=== PATIENT | male | born 1950 | race Caucasian/White ===

== ENCOUNTER → 2017-09-12 11:15 | Outpatient (CLI) | payer OTHER, SELFPAY ==
--- NOTE | 2017-09-12 11:22 | US_ITS ---
STUDY: SCROTUM ULTRASOUND REASON FOR EXAM: Male, 67 years old. Lump TECHNIQUE: Ultrasound evaluation of the scrotum was performed with color Doppler and static pathak-scale imaging. COMPARISON: None. FINDINGS: RIGHT TESTICLE INTRATESTICULAR: There is a normal size of the right testicle. The right testicle measures 3.7 x 3.1 x 2.7 cm. There is a homogenous echotexture. There is normal arterial and normal venous vascularity. There is no demonstrated right testicular mass or cyst. EXTRATESTICULAR: The epididymis is normal in size. The epididymis head measures 1.1 cm. There is normal vascularity of the epididymis. There is no demonstrated epididymal cystic structure. There is a small hydrocele. There is no demonstrated varicocele. There is no demonstrated extratesticular mass or cyst. LEFT TESTICLE INTRATESTICULAR: There is a normal size of the left testicle. The left testicle measures 4.1 x 3.2 x 2.3 cm. There is a homogenous echotexture. There is normal arterial and normal venous vascularity. There is no demonstrated left testicular mass or cyst. EXTRATESTICULAR: The epididymis is normal in size. The epididymis head measures 6.7 cm. There is normal vascularity of the epididymis. There is no demonstrated epididymal cystic structure. There is a small hydrocele. There are prominent extratesticular veins consistent with a varicocele. There is no demonstrated extratesticular mass or cyst. US/Testicular with Arterial Flow IMPRESSION: No testicular mass or torsion. Bilateral small hydroceles. Small left varicocele. Electronically Signed: Ephraim Pierce DO at 10:57 EDT , Service support ,
== END ==
DX: N50.0 Atrophy of testis (principal)
CPT/HCPCS: 76870; 93976

== ENCOUNTER 2019-05-20 08:55 | Observation (INO) | payer MEDICARE, OTHER, SELFPAY ==
[2019-05-20] VITALS (12 sets, daily range): BP systolic 143–195; BP diastolic 77–107; PULSE 71–92; RESP 13–17; TEMP 36.5–36.8; O2SAT 95–98; BMI 31.3; BMI 30.3; BMI 30.4
--- NOTE | 2019-05-20 09:01 | NURSING ---
NO OLD EKGS
--- NOTE | 2019-05-20 09:17 | CT_ITS ---
STUDY: CT BRAIN WITHOUT CONTRAST REASON FOR EXAM: Male, 69 years old. PATIENT REPORTS WAKING THIS AM AND FEELING HIS BALANCE IS OFF. ADDS THAT HE HAS HAD DIFFICULTY CONCENTRATING AND CONFUSION. BLOOD SUGAR AT WORK WAS 86. RADIATION DOSAGE (If Supplied By Facility): CTDIvol = ( 44.99 ) mGy, DLP = ( 812.98 ) mGycm TECHNIQUE: Transaxial CT imaging of the brain was performed without administration of intravenous contrast material. Individualized dose optimization techniques were used for this CT. COMPARISON: Comparison is made with prior study dated May 19, 2014. FINDINGS: Normal soft tissue structures. Normal calvarium. There is mild cerebral atrophy with widening of the extra-axial spaces and ventricular dilatation. There are areas of decreased attenuation within the white matter tracts of the supratentorial brain, consistent with microvascular disease changes. Normal basal ganglia and thalami. Normal brainstem. Normal cerebellum. There is no intracranial hemorrhage. There are no findings of an acute ischemic infarction. Mucosal thickening of the ethmoid sinuses and partial opacification of the base of the right maxillary sinus and mucosal thickening of the left maxillary sinus. CT/Brain/Head without Contrast IMPRESSION: Sinusitis. Electronically Signed: Brian Porter, at 9:59 EST , Service support ,
--- NOTE | 2019-05-20 09:17 | EKG12_ITS ---
Test Reason : DIZZY Blood Pressure : / mmHG Vent. Rate : 072 BPM Atrial Rate : 072 BPM P-R Int : 152 ms QRS Dur : 100 ms QT Int : 392 ms P-R-T Axes : 037 -12 005 degrees QTc Int : 429 ms Normal sinus rhythm Minimal voltage criteria for LVH, may be normal variant Borderline ECG Confirmed by AURORA ROSAS, JUMANA ([id number]), website/blog editor JUANITO MATTA ([id number]) on 05/21/2019 8:02:39 AM Referred By: IFEANYI Confirmed By:ZO SIMON MD
--- NOTE | 2019-05-20 09:20 | ED.VIS.GEN ---
History of Present Illness Chief Complaint: Neuro S/Sx Informant: Patient Onset: Today Narrative: Patient states that he went to bed last night at 2030 hours. He states that he woke up as usual at 0230 hours. He felt okay getting out of bed but when he attempted to walk around the bed he felt very unsure of his footing and off-balance. States there is no room spinning he just felt very off. He describes it as much like being on a ship and being unsure of where to adjust your weight due to the rocking of the boat. He notes an occipital headache. States his thinking is very slow and confused. He states his normal 15-minute drive to work took him 20 to 25 minutes. States that he was stopped at a stop sign and was very unsure if he had locked whether or not he should go. As part of his job he has to check the weather and record it so he went outside looked up at the [place] and states that he almost fell over. He notes a history of hypertension. He also has a history of ocular migraines but has not had one for several years. He has a history of approximately 3 concussions but states that it is been several years since he has had one. He denies any recent trauma. He sees the [facility] in [place]. Past Medical History - Allergies and Home Meds Allergies/Adverse Reactions: Allergies adhesive Allergy (Verified 05/20/19 10:01) Rash [place] And Derivatives Allergy (Verified 05/20/19 10:01) Food Allergy Primary Care Physician: [place] [Primary Care Provider] - Smoking Status: Never smoker Review of Systems General: Denies: Chills, Fever, Sweats Eyes: Denies: Visual changes - bilaterally, Diplopia ENT: Denies: Rhinorrhea, Sore throat Cardiovascular: Denies: Chest pain, Palpitations Respiratory: Denies: Dyspnea, Cough, Dyspnea on exertion Gastrointestinal: Denies: Abdominal pain, Nausea, Vomiting, Diarrhea, Melena, Hematochezia Genitourinary: Denies: Dysuria, Hematuria, Frequency Musculoskeletal: Denies: Back pain, Extremity Pain Skin: Denies: Rash, Wounds Neurological: Reports: Headache, - - Ataxia. Denies: Weakness, Numbness Psych: Denies: Depression, Anxiety Physical Exam Vital Signs/Narrative: Vital Signs Temp Pulse Resp BP Pulse Ox 05/20/19 09:13 76 13 195/97 H 98 05/20/19 09:04 98.3 F 76 17 170/94 H 97 Inital Vital Signs reviewed: Yes General: Well nourished, Well developed, No Acute Distress Head: Normocephalic, Atraumatic Eyes: Perrl, EOMI ENT: Moist mucous membranes, No rhinorrhea Neck: Supple, Nontender Cardiovascular: Regular rate, Regular rhythm, No murmurs Respiratory: No distress, CTA bilaterally, Chest nontender Abdomen: Soft, Nontender, Nondistended, Normal bowel sounds Back: Nontender, Normal Inspection Extremities: Nontender, No edema Skin: Normal color, No rash Neurological: Alert, Oriented x3, Cranial nerves II-XII grossly intact, Normal Strength, Normal Sensation, - - NIH score is 0. He performs exceedingly well at [employer]. Psychological: Normal affect, Normal Mood Diagnostic/Tx/Re-eval - Medical Decision Making Basic labs were obtained essentially negative. Initial brain CT was negative. CT [place] of the head and neck showed no obvious dissection. Patient was reassessed and is able to ambulate feeling better. I am concerned of a central cause for his ataxia such as TIA. Patient is amendable to observational stay for further evaluation. ED Disposition - Plan for ED Patient: Disposition: Acute Care Hospital [facility] Diagnosis: Ataxia, TIA (transient ischemic attack) [facility] [Primary Care Provider] -
[2019-05-20 09:21] LABS: Bedside Glucose 89 mg/dL (70-110)
[2019-05-20 09:28] LABS: Absolute Neutrophil Count 3.6 X10^3/uL (2.0-7.7); Basophil# 0.06 X10^3/uL; Eosinophil# 0.14 X10^3/uL; Eosinophils% 2.4 % (0-5); Hematocrit 48.7 % (40-54); Hemoglobin 16.2 g/dL (13.0-16.5); Lymphocyte % 27.4 % (19-41); Mean Corp Hgb Conc 33.3 g/dL (32-36); Mean Corpuscular Hgb 29.5 pg (27.0-32.0); Mean Corpuscular Volume 88.7 fL (80-94); Mean Platelet Vol. 10.2 fl (6.2-12.0); Monocyte# 0.45 X10^3/uL; Monocyte% 7.7 % (0-10); NRBC Flagged by Analyzer 0 % (0-5); Neutrophil # 3.59 X10^3/uL (2.7-7.7); Neutrophil % 61.3 % (47-70); Platelet Count 169 K/mm3 (150-450); RBC Distribution Width CV 12.7 % (11.6-14.6); RBC Distribution Width SD 41.1 fl (35.1-43.9); Red Blood Count 5.49 M/mm3 (4.6-6.2); White Blood Count 5.9 K/mm3 (4.4-11.0)
[2019-05-20 09:39] LABS: Prothrombin Time (Protime)PT. 12.7 SECONDS (11.7-14.9)
[2019-05-20 09:40] LABS: Partial Thromboplast Time 32.2 Seconds (24.1-36.2)
[2019-05-20 09:43] LABS: Anion Gap 3 (5-15); BUN 17 mg/dL (7-18); BUN/Creat Ratio 18.1 RATIO (10-20); Calcium,Total 9.2 mg/dL (8.5-10.1); Chloride 108 mmol/L (98-107); Creatinine, Serum 0.94 mg/dL (0.70-1.30); EST Glomerular Filtration Rate 84 mL/min (>60); Est Glom Filt Rate - Afr Amer 102 mL/min (>60); Estimated Creatinine Clearance 65.04 ml/min; Glucose 87 mg/dL (74-106); Potassium 3.5 mmol/L (3.5-5.1); Sodium Level 141 mmol/L (136-145)
--- NOTE | 2019-05-20 09:48 | RAD_ITS ---
STUDY: X-RAY CHEST REASON FOR EXAM: Male, 69 years old. ATAXIA TECHNIQUE: Single AP portable view of the chest. COMPARISON: None. FINDINGS: EKG electrodes are seen. The lungs are clear and expanded. Scattered calcified granulomas. There is no demonstrated pleural abnormality. Normal size heart. Normal mediastinum and wallace. Normal visualized pulmonary arteries. There is atherosclerotic calcification of the aortic arch with tortuosity. There are diffuse degenerative changes of the visualized thoracic spine. Normal visualized ribs, clavicles, and shoulders. There is no demonstrated abnormality of the visualized soft tissue structures of the upper abdomen. RAD/Chest 1 View IMPRESSION: No acute abnormality is seen. Electronically Signed: Brian Porter, at 10:10 EST , Service support ,
--- NOTE | 2019-05-20 10:41 | NURSING ---
CALLED [facility] TO LET THEM KNOW PATIENT WILL BE ADMITTED. TALKED TO MICKEY IN TRANSFER DEPT, SHE TOOK LAST NAME AND SS# , AND DIAGNOSIS
--- NOTE | 2019-05-20 11:07 | CT_ITS ---
STUDY: CTA HEAD AND NECK WITH CONTRAST REASON FOR EXAM: Male, 69 years old. STROKE/OFF BALANCE/CONFUSION RADIATION DOSAGE (If Supplied By Facility): CTDIvol = ( 19.54 ) mGy, DLP = ( 713.36 ) mGycm TECHNIQUE: CT angiography was performed with a multi-detector CT scanner. Data acquisition was obtained from the skull base through the vertex following intravenous administration of 100 CC ISOVUE 370. MIP images were reconstructed from the axial data set. Post-processing of the angiographic images was performed, with multiplanar reformation and 3D reconstruction. Individualized dose optimization techniques were used for this CT. COMPARISON: No relevant priors. FINDINGS: There is a mild degree of diffuse enlargement of both lobes of thyroid with the hypodensity within suggestive of goitrous change. Normal bilateral petrous carotid arteries. There is calcified plaque formation of the right cavernous carotid artery, without a cross-sectional luminal stenosis. There is calcified plaque formation of the left cavernous carotid artery, without a cross-sectional luminal stenosis. Normal right A1 segments of the anterior cerebral artery. Normal left A1 segments of the anterior cerebral artery. Normal intact anterior communicating artery (ACOM). Normal bilateral A2 segments of the anterior cerebral arteries. Normal right M1 and M2 segments of the middle cerebral arteries, with a normal M1 bifurcation. Normal left M1 and M2 segments of the middle cerebral arteries, with a normal M1 bifurcation. Normal right posterior communicating artery (PCOM). Normal left posterior communicating artery (PCOM). Normal bilateral vertebral arteries. Normal basilar artery with a normal basilar bifurcation. The visualized bilateral superior cerebellar (SCA) arteries are normal. Normal bilateral P1, P2 and visualized P3 segments of the posterior cerebral arteries. There is no demonstrated aneurysm of the [place]. Cerebral atrophy. Sinusitis. AORTIC ARCH: Normal visualized aortic arch. Normal origins of the brachiocephalic, left common carotid, and left subclavian arteries. RIGHT CAROTID ARTERIES: Normal right common carotid artery (CCA). Normal right common carotid bulb. There is minimal atherosclerotic plaque formation of the origin of the right internal carotid artery with less than 50% cross sectional diameter stenosis. Normal visualized cervical portion of the right internal carotid artery. Normal origin of the right external carotid artery (ECA). LEFT CAROTID ARTERIES: Normal left common carotid artery (CCA). Normal left common carotid bulb. There is minimal atherosclerotic plaque formation of the origin of the left internal carotid artery with less than 50% cross sectional diameter stenosis. Normal visualized cervical portion of the left internal carotid artery. Normal origin of the left external carotid artery (ECA). VERTEBRAL ARTERIES: Normal bilateral vertebral arteries. CT/CTA Head AND Neck W/ Contrast IMPRESSION: Minimal calcific plaque at the origin of both right and left internal carotid arteries. Electronically Signed: Brian Porter, at 12:03 EST , Service support ,
--- NOTE | 2019-05-20 11:17 | ED.RN ---
PT OUT OF ED IN WHEELCHAIR FOR TRANSPORT BACK TO [facility].
--- NOTE | 2019-05-20 13:22 | ECHOD_ITS ---
Reason For Study: TIA/CVA Procedure This was a 2D Doppler, Color Flow transthoracic echocardiogram. Exam performed portable in patient room. Left Ventricle Normal LV size. The estimated ejection fraction is 65 %. Normal diastology for age. No regional wall motion abnormalities noted. Right Ventricle Normal RV size. Normal systolic function. Atria Normal left atrium. Normal right atrium. Bubble contrast study negative for right to left interatrial shunt. There were bubbles that reached the left side of the heart but it was 6 beats after reaching the right side. Mitral Valve There is no mitral valve stenosis. No mitral valve insufficiency. Tricuspid Valve There is no tricuspid stenosis. Trivial tricuspid valve insufficiency. Pulmonary artery systolic pressure is 30-35 mmHg. Aortic Valve Trisinus/trileaflet aortic valve. There is no aortic stenosis. No aortic valve insufficiency. Pulmonic Valve There is no pulmonic valvular stenosis. No pulmonic valve insufficiency. Great Vessels Normal aortic root. Pericardium/Pleural No pericardial effusion. Medication Performed a rapid injection of agitated mix of 9 cc saline and 1cc air to assess for atrial septal defect. MMode/2D Measurements & Calculations LVIDd: 4.7 cm IVSd: 1.1 cm Ao root diam: 3.8 cm LVIDs: 3.3 cm LVPWd: 1.1 cm RVDd: 3.7 cm FS: 28.6 % LAV(MOD-bp): 42.3 ml LVAd ap4: 34.0 cm2 SV(MOD-sp4): 70.2 ml LAV(MOD-bp) Indexed: 21.4 ml/m2 EDV(MOD-sp4): 109.6 ml LAV(MOD-sp2): 60.3 ml EDV(sp4-el): 115.7 ml LAV(MOD-sp4): 28.0 ml LVAs ap4: 16.8 cm2 ESV(MOD-sp4): 39.4 ml ESV(sp4-el): 37.3 ml EF(MOD-sp4): 64.1 % EF(sp4-el): 67.8 % SV(sp4-el): 78.5 ml LA A4 area: 13.1 cm2 LA dimension(2D): 3.5 cm RA A4 area: 13.4 cm2 Time Measurements MV dec time: 0.25 sec Doppler Measurements & Calculations MV E max ashish: 61.6 cm/sec Lat Peak E' Ashish: 7.5 cm/sec Med Peak E' Ashish: 6.6 cm/sec MV A max ashish: 89.2 cm/sec E/E' lat: 8.2 E/E' med: 9.4 MV E/A: 0.69 Ao V2 max: 133.6 cm/sec LV V1 max: 90.9 cm/sec PA V2 max: 111.1 cm/sec Ao max P.1 mmHg LV V1 max P.3 mmHg TR max ashish: 252.9 cm/sec TR max P.7 mmHg Interpretation Summary The estimated ejection fraction is 65 %. Normal diastology for age. Bubble contrast study negative for right to left interatrial shunt. Trivial tricuspid valve insufficiency. Ordering Physician: Andrews Hernadez Referring Physician: [facility] Performed By: Ana Levy, RDCS, RVT
--- NOTE | 2019-05-20 13:22 | MRI_ITS ---
STUDY: MRI BRAIN WITHOUT CONTRAST REASON FOR EXAM: Male, 69 years old. vertigo, unsteady gait, h/o ocular migraines, TECHNIQUE: Standardized multiplanar fat and water weighted pulse sequences were obtained. COMPARISON: None. FINDINGS: There is mild cerebral atrophy with widening of the extra-axial spaces and ventricular dilatation. There are a limited number of small white matter hyperintensities, distributed throughout the deep white matter tracts of the cerebral hemispheres, consistent with mild chronic white matter ischemic changes. There is no evidence for recent intracranial ischemia or other cause of cytotoxic edema on diffusion weighted imaging (DWI). Normal T2* images of the brain without demonstrated susceptibility artifact. There is no demonstrated hemosiderin stain. There is small area of the right frontal subcortical microvascular ischemic change. Normal bilateral basal ganglia. Normal thalami. There is no extra-axial fluid accumulation. Normal flow voids within the major intracranial circulation suggesting patency by spin echo criteria. Normal sella turcica, pituitary gland, infundibular stalk, optic chiasm and hypothalamus. Normal tectal plate and pineal gland. Normal midbrain, aurelio and medulla. Normal cerebellum. Normal basal cisterns. Normal bilateral temporal bones. Normal bilateral internal auditory canals. No demonstrated orbital abnormality, within the constraints of a routine brain study. Normal visualized paranasal sinuses. Bilateral mastoid effusions are present, correlate for congestive versus inflammatory process. Normal visualized soft tissue structures. Normal visualized upper cervical spine. MRI/Brain without Contrast IMPRESSION: 1. No evidence of acute intracranial bleed, mass or ischemia. Electronically Signed: Art Nichols DO at 20:16 EST , Service support ,
--- NOTE | 2019-05-20 14:06 | HP.PCM_ITS ---
History of Present Illness Date of Admission: 05/20/19 Chief Complaint: dizziness The patient is a 69 year old M presents with dizziness. Patient got up this morning and was some do some things around the house and then just felt dizzy. States that he did not feel that the room was spinning but just felt off balance and was leaning towards the wall. Went to work today and just was processing things slower, such as when he was at a stop sign, was very hesitant in regards to moving forward. Stated that his normal route, as he works as a transportation attendant, took a 20 minutes instead of its typical 15. Spoke with his and was speaking slowly but not slurring his words. There was concern patient was sent to the emergency room. Symptoms essentially did resolve the patient did undergo a work-up in the emergency room that was unremarkable. The hospital service was asked to evaluate the patient for evaluation for possible stroke. He denies ever having had symptoms such as this before. [] Past Medical History Medical History: Medical History (Last Updated 05/20/19 @ 14:[address] Andrews Hernadez, ) HTN (hypertension) I10 Allergies adhesive Allergy (Verified 05/20/19 10:01) Rash Bee And Derivatives Allergy (Verified 05/20/19 10:01) Food Allergy Home Medications: Ambulatory Orders Medication Instructions Recorded Aspirin [Aspirin, Baby] 81 mg PO DAILY@0800 03/19/14 Amlodipine [Norvasc] 2.5 mg PO DAILY 05/20/19 Cholecalciferol (VIT D3) [Vitamin 1,000 mg PO DAILY 05/20/19 D3] Metoprolol Tartrate 25 mg PO BID 05/20/19 Multivitamin [Daily Multiple 1 ea PO DAILY 05/20/19 Vitamin] Naproxen Sodium 220 mg PO BID 05/20/19 Psychiatric History: No pertinent psych hx Lives: Spouse/ Significant Other Smoking Status: Former smoker Tobacco Use: Non-smoker Alcohol: Rare Drugs: None - *Family History Maternal History Items: - - no CVA Review of Systems Constitutional: Denies: Anorexia, Chills, Fever, Night Sweats Eyes: Denies: Blurred vision, Double vision HEENT: Denies: Head Aches, Sinus Congestion, Sinus Drainage Cardiovascular: Denies: Chest Pain, Palpitations Respiratory: Denies: Cough, Shortness of breath at rest, Sputum production Gastrointestinal: Denies: Abdominal Pain, Nausea, Vomiting Genitourinary: Denies: Dysuria Musculoskeletal: Denies: Joint Pain, Joint Tenderness Skin: Denies: Rash, Wounds Neurological: Reports: Balance problems, Change in Speech - slow, but not slurred. Denies: Blurred vision, Double vision, Focal weakness, Incoordination, Numbness Psychiatric: Denies: Anxiety, Depression Hematologic/ Lymphatic: Denies: Easy Bruising, Easy Bleeding, Hx of blood clot Comment: All review of systems were negative except as mentioned above in the history of present illness and the other review of systems. VTE Information - Inpt Only VTE Present on Admission: No VTE Mechan Device Prophylaxis: None VTE Pharm Prophylaxis ordered?: No Reason prophylaxis not ordered:: Treatment Not Indicated Patient Problems: Active and Suspected Problems (Last Updated 05/20/19 @ 14:[address] Andrews Hernadez, DO) Ataxia (Acute) TIA (transient ischemic attack) (Acute) - Physical Exam Vitals/I&O's: Vital Signs Temp Pulse Resp BP Pulse Ox 36.8 C 80 16 187/107 H 97 05/20/19 13:30 05/20/19 13:30 05/20/19 13:30 05/20/19 13:30 05/20/19 13:30 Oxygen Delivery Method Room Air Weight: 88 kg Body Mass Index (BMI) 31.3 Finger Stick Blood Glucose 89 General: Alert, Oriented x3, Cooperative HEENT: Atraumatic, PERRLA, EOMI - had some left lateral nystagmus that fatigued, Normocephalic Oral: Moist Mucosa, No Gingival or Mucosal Lesions/ Ulcerations Neck: Negative Carotid Bruits, No Nodes, Trachea Midline Lungs: Clear to auscultation, Normal air movement, No rhonchi, No wheeze, No rales Cardiovascular: Regular rate, Regular Rhythm, Normal S1, Normal S2, No murmurs Abdomen: Bowel Sounds Present, Soft, Non Tender, Non-Distended, No Hepato- splenomegaly Extremities: No edema, No Calf Tenderness Skin: No rashes, No breakdown Musculoskeletal: No Tenderness to Palpation of Joints or Extremities, No Muscle Wasting Neurological: Cranial nerves II-XII grossly intact, Deep Tendon Reflexes 2+/4 and Symmetrical, Motor Exam 5/5 strength throughout, Coordination normal, - - [place]-Hallpike negative. Psych/Mental Status: Normal Affect, Appropriate Laboratory Results 05/20/19 09:05: WBC 5.9, RBC 5.49, Hgb 16.2, Hct 48.7, MCV 88.7, MCH 29.5, MCHC 33.3, RDW Std Deviation 41.1, RDW Coeff of Stephen 12.7, Plt Count 169, MPV 10.2, Immature Gran % (Auto) 0.200, Neut % (Auto) 61.3, Lymph % (Auto) 27.4, Boundary % (Auto) 7.7, Eos % (Auto) 2.4, Baso % (Auto) 1.0, Absolute Neuts (auto) 3.6, Absolute Lymphs (auto) 1.60, Nucleated RBC % 0 05/20/19 09:05: PT 12.7, INR 1.0, APTT 32.2 05/20/19 09:05: Sodium 141, Potassium 3.5, Chloride 108 H, Carbon Dioxide 30.0, Anion Gap 3 L, BUN 17, Creatinine 0.94, Estim Creat Clear Calc 65.04, Est GFR (MDRD) Af Amer 102, Est GFR (MDRD) Non-Af 84, BUN/Creatinine Ratio 18.1, Glucose 87, Calcium 9.2, Troponin I < 0.015 05/20/19 09:07: POC Glucose 89 Clinical Impression(s) from Imaging Studies Brain CT 05/20/19 09:17 IMPRESSION: Sinusitis. Electronically Signed: Brian Porter, at 9:59 EST , Service support , Chest X-Ray 05/20/19 09:48 IMPRESSION: No acute abnormality is seen. Electronically Signed: Brian Porter, at 10:10 EST , Service support , Head/Neck CTA 05/20/19 11:07 IMPRESSION: Minimal calcific plaque at the origin of both right and left internal carotid arteries. Electronically Signed: Brian Porter at 12:03 EST , Service support , Current Medications Acetaminophen (Tylenol) 650 mg PO Q6H PRN PRN PRN Reason: Pain Score 1-10/Temp > 100.7 F Glucagon () 1 mg IM .X1 PRN PRN Reason: Hypoglycemia Dextrose (Dextrose 10%-Water) 250 mls @ 999 mls/hr IV .Q16M PRN; Protocol PRN Reason: HYPOGLYCEMIA Ondansetron HCl (Zofran) 4 mg IV Q8H PRN PRN PRN Reason: NAUSEA/VOMITING Sodium Chloride () 10 - 40 ml IV UD PRN PRN Reason: SALINE FLUSH Assessment/Plan All Active Problems (Last Updated 05/20/19 @ 14:[address] Andrews Hernadez, DO) Ataxia (Acute) TIA (transient ischemic attack) (Acute) 1. Vertigo * Not the classical presentation but patient had symptoms that were worse with movement. Patient explained that he was looking to check the [place] and then looked immediately down that he felt suddenly worse with that. * Symptomatically, he is much better at this time. However, will evaluate the patient for stroke and complete the stroke work-up with an MRI and echocardiogram. If no stroke, then I feel the rest of neurology evaluation can be discontinued and this can be treatable to benign paroxysmal positional vertigo. Given that he is symptom-free at this time would not advise any additional treatment or evaluation. If stroke is identified, then would complete the stroke work-up as already been ordered, consult the [facility] neurology group * Patient has had previous issues with MRIs but seem like those episodes may been more pain rather than anxiety. Told patient we will give him a one-time dose of lorazepam prior to his MRI if he feels that he needs it. Informed he and his that unfortunately we do not do conscious sedation for MRIs at this facility. Did strongly encourage patient to undergo the MRI here rather than get this done as outpatient which may take several weeks. 2. Hypertension: Accelerated. Need to evaluate for stroke before aggressive treatment. 3. VTE prophylaxis: Not indicated as the patient is currently observation status. If the status changes from out to inpatient then would need to reconsider initiating VTE prophylaxis 4. Advanced care planning: Patient wishes to be DNR Com[facility] Care arrest. Verified with patient that that is his wish and he verified as such. Explained the patient that he is certainly welcome to change his decision on that at any point time. I did preface that as though I do not anticipate any cardiac issues during this hospitalization. OBSV E&M: [id number] Initial observation care L3
[2019-05-20] MEDS: LORazepam 1 MG Tablet PO (18:17)
[2019-05-20] MEDS: Naproxen 250 MG Tablet PO (22:18)
[2019-05-21] VITALS (7 sets, daily range): BP systolic 142–161; BP diastolic 84–95; PULSE 73–94; RESP 15–16; TEMP 36.4–36.6; O2SAT 95–97; BMI 30.3
[2019-05-21 06:31] LABS: Cholesterol 181 mg/dL (200); High Density Lipoprotein 30 mg/dL; Triglycerides 343 mg/dL; Very Low Density Lipoprotein 69 mg/dL (5-40)
--- NOTE | 2019-05-21 08:54 | PCM.DC ---
- Discharge Diagnoses Current Active Problems: Current Active and Chronic Problems (Last Updated 05/20/19 @ 14:[address] Andrews Hernadez, DO) Ataxia (Acute) TIA (transient ischemic attack) (Acute) You will use the following diet at home:: No restrictions Your food should be the consistency of: Regular Allergies/Adverse Reactions: Allergies adhesive Allergy (Verified 05/20/19 10:01) Rash [place] And Derivatives Allergy (Verified 05/20/19 10:01) Food Allergy Medications to take at Discharge Aspirin [Aspirin, Baby] 81 mg PO DAILY@0800 03/19/14 Amlodipine [Norvasc] 2.5 mg PO DAILY 05/20/19 Cholecalciferol (VIT D3) [Vitamin D3] 1,000 mg PO DAILY 05/20/19 Metoprolol Tartrate 25 mg PO BID 05/20/19 Multivitamin [Daily Multiple Vitamin] 1 ea PO DAILY 05/20/19 Naproxen Sodium 220 mg PO BID 05/20/19 [facility] Care Physician: [facility] [Primary Care Provider] - Within 2 Weeks Test Results: Test results from this visit will be discussed in further detail at your follow-up appointment, if applicable. Proposed Discharge Date: 05/21/19
--- NOTE | 2019-05-21 08:58 | DS.PCM_ITS ---
Discharge Date and Diagnosis - Problem List Patient Problems: Active and Suspected Problems (Last Updated 05/20/19 @ 14:[address] Andrews Hernadez DO) Ataxia (Acute) TIA (transient ischemic attack) (Acute) Date of Admission: 05/20/19 Date of Discharge: 05/21/19 - Primary Discharge Diagnosis Active and Suspected Problems (Last Updated 05/20/19 @ 14:[address] Andrews Hernadez DO) Benign Paroxysmal positional vertigo Hospital Course and Treatment Imaging Results: Clinical Impression(s) from Imaging Studies Brain CT 05/20/19 09:17 IMPRESSION: Sinusitis. Electronically Signed: Brian Porter, at 9:59 EST , Service support , Chest X-Ray 05/20/19 09:48 IMPRESSION: No acute abnormality is seen. Electronically Signed: Brian Porter at 10:10 EST , Service support , Head/Neck CTA 05/20/19 11:07 IMPRESSION: Minimal calcific plaque at the origin of both right and left internal carotid arteries. Electronically Signed: Brian Porter at 12:03 EST , Service support , Brain MRI 05/20/19 13:22 IMPRESSION: 1. No evidence of acute intracranial bleed, mass or ischemia. Electronically Signed: Art Nichols DO at 20:16 EST , Service support , Operations: None Summary of Care Provided: The patient is a 69 year old M presented with dizziness. Patient just felt off. He denied the room spinning. Symptoms lasted for a while and was noted that he was speaking slowly though not slurred speech. They were concerned and brought the patient to the emergency room. Patient had a head CT that was unremarkable. Patient was admitted for further evaluation for possible posterior circulation event. By time he arrived to the hospital symptoms resolved. Patient did undergo an MRI yesterday that was negative. Discussed with the patient that the etiology is is likely benign paroxysmal positional vertigo. Recommend that there are medications that can help symptoms but being that he is symptom-free right now and I feel that is necessary. Did discuss with him about Chandni maneuvers and that there are videos online about that but status can be hard to do himself particular if he is feeling very dizzy. But hopefully that he would never have this again. [] Patient Problems: Active and Suspected Problems (Last Updated 05/20/19 @ 14:[address] Andrews Hernadez, DO) Ataxia (Acute) TIA (transient ischemic attack) (Acute) - Physical Exam Vitals/I&O's: Vital Signs Temp Pulse Resp BP Pulse Ox 36.6 C 74 16 152/84 H 97 05/21/19 04:00 05/21/19 07:25 05/21/19 04:00 05/21/19 04:00 05/21/19 07:50 Oxygen Delivery Method Room Air Weight: 85.3 kg Body Mass Index (BMI) 30.3 Finger Stick Blood Glucose 89 Intake and Output for Last 24 Hours 05/19/19 05/20/19 05/21/19 23:59 23:59 23:59 Intake Total 1120 / 1120 100 / 100 Balance 1120 / 1120 100 / 100 General: Alert, Cooperative, No apparent distress HEENT: Atraumatic, Normocephalic Psych/Mental Status: Normal Affect, Appropriate Laboratory Results 05/20/19 09:05: WBC 5.9, RBC 5.49, Hgb 16.2, Hct 48.7, MCV 88.7, MCH 29.5, MCHC 33.3, RDW Std Deviation 41.1, RDW Coeff of Stephen 12.7, Plt Count 169, MPV 10.2, Immature Gran % (Auto) 0.200, Neut % (Auto) 61.3, Lymph % (Auto) 27.4, [place] % (Auto) 7.7, Eos % (Auto) 2.4, Baso % (Auto) 1.0, Absolute Neuts (auto) 3.6, Absolute Lymphs (auto) 1.60, Nucleated RBC % 0 05/20/19 09:05: PT 12.7, INR 1.0, APTT 32.2 05/20/19 09:05: Sodium 141, Potassium 3.5, Chloride 108 H, Carbon Dioxide 30.0, Anion Gap 3 L, BUN 17, Creatinine 0.94, Estim Creat Clear Calc 65.04, Est GFR (MDRD) Af Amer 102, Est GFR (MDRD) Non-Af 84, BUN/Creatinine Ratio 18.1, Glucose 87, Calcium 9.2, Troponin I < 0.015 05/20/19 09:07: POC Glucose 89 05/21/19 05:41: Triglycerides 343 H, Cholesterol 181, LDL Cholesterol 82, VLDL Cholesterol 69 H, HDL Cholesterol 30 L Current Medications Acetaminophen (Tylenol) 650 mg PO Q6H PRN PRN PRN Reason: Pain Score 1-10/Temp > 100.7 F Aspirin (Aspirin, Baby) 81 mg PO DAILY@0800 [facility] Cholecalciferol (Vitamin D (25mcg)) 1,000 unit PO DAILY [facility] Glucagon () 1 mg IM .X1 PRN PRN Reason: Hypoglycemia Dextrose (Dextrose 10%-Water) 250 mls @ 999 mls/hr IV .Q16M PRN; Protocol PRN Reason: HYPOGLYCEMIA Multivitamins (Multivitamin) 1 tablet PO DAILYCM [facility] Naproxen (Naprosyn) 250 mg PO 1700 [facility] Last Admin: 05/20/19 22:18 Dose: 250 mg Documented by: Naproxen (Naprosyn) 500 mg PO 0800 [facility] Ondansetron HCl (Zofran) 4 mg IV Q8H PRN PRN PRN Reason: NAUSEA/VOMITING Sodium Chloride () 10 - 40 ml IV UD PRN PRN Reason: SALINE FLUSH Discharge Diet: No Restrictions Return to work on:: 05/21/19 Home Medications: Medications to take at Discharge Aspirin [Aspirin, Baby] 81 mg PO DAILY@0800 03/19/14 Amlodipine [Norvasc] 2.5 mg PO DAILY 05/20/19 Cholecalciferol (VIT D3) [Vitamin D3] 1,000 mg PO DAILY 05/20/19 Metoprolol Tartrate 25 mg PO BID 05/20/19 Multivitamin [Daily Multiple Vitamin] 1 ea PO DAILY 05/20/19 Naproxen Sodium 220 mg PO BID 05/20/19 [facility] Care Physician: [facility] [Primary Care Provider] - Within 2 Weeks Disposition: Home Minutes spent on discharge:: 25 Patient Condition:: Good Medical Necessity - Tobacco Use Smoking Status: Former smoker Tobacco Use: Non-smoker Meaningful Use Info Meaningful Use Diagnoses (Choose all that apply): None applicable OBSV E&M: 03556 Observation care discharge
[2019-05-21] MEDS: Aspirin 81 MG TAB.CHEW PO (09:57)
[2019-05-21] MEDS: Naproxen 500 MG Tablet PO (09:57)
[2019-05-21] MEDS: Multivitamins,Therapeutic Tablet 1 TABLET PO (09:57)
== END 2019-05-21 08:57 | disposition home or self-care (01) ==
LOC: ED 12:32 → PCU 12:49
PROVIDERS: Emergency Provider Emergency Medicine
DX: H81.10 Benign paroxysmal vertigo, unspecified ear (principal); I10 Essential (primary) hypertension; G43.809 Other migraine, not intractable, without status migrainosus; Z79.899 Other long term (current) drug therapy; Z79.82 Long term (current) use of aspirin; Z87.891 Personal history of nicotine dependence
CPT/HCPCS: 36415; 70450; 70496; 70498; 70551; 71045; 80048; 80061; 82962; 84484; 85025; 85610; 85730; 93005; 93306; 94762; 97802; 99218; 99285; Q9957; Q9967; A4216; G0378

== ENCOUNTER 2019-09-24 17:55 | Emergency (ER) | payer OTHER, MEDICARE, SELFPAY ==
[2019-05-21 10:00] VITALS: BMI 30.3
[2019-09-24 17:57] VITALS: PULSE 115; RESP 18; TEMP 36.3; O2SAT 94; BMI 30.7
--- NOTE | 2019-09-24 18:10 | CT_ITS ---
STUDY: CT ABDOMEN AND PELVIS WITHOUT CONTRAST REASON FOR EXAM: Male, 69 years old. RIGHT FLANK PAIN. H/O [place] RADIATION DOSAGE (If Supplied By Facility): CTDIvol = ( 9.98 ) mGy, DLP = ( 521.19 ) mGycm TECHNIQUE: Transaxial images were obtained from the dome of the diaphragm to the symphysis pubis without oral contrast, and without intravenous contrast. Sagittal and coronal images were reconstructed. Individualized dose optimization techniques were used for this CT. COMPARISON: None. FINDINGS: The visualized lung bases are unremarkable. A tiny cyst is present anterior aspect of the medial portion of the right lobe of the liver of no clinical significance and requiring no further imaging. The remaining aspects of the liver are normal. Tiny calcifications of the liver capsule parenchyma noted. Normal gallbladder and extrahepatic biliary system. There is a benign calcified granuloma of the spleen. Normal pancreas. Normal bilateral adrenal glands. Moderate right hydronephrosis is present secondary to a 1.1 cm obstructing stone in the proximal ureter a few millimeters distal to the UPJ. Moderate perinephric stranding and edema is also present. No additional radiopaque stones of the right kidney. Mild cortical atrophy and lobularity of the left kidney noted. A 3 mm calyceal stone is present in the lower pole of the left kidney. Mild chronic perinephric stranding of the left kidney noted. A tiny cortical lipoma of the superior pole of the left kidney noted. There is a small hiatal hernia. Normal small intestine. There are multiple colonic diverticula consistent with diverticulosis. The appendix is visualized and appears normal. There is diffuse atherosclerotic calcification of the abdominal aorta, without a demonstrated aneurysm. Normal inferior vena cava. Normal retroperitoneum. Normal urinary bladder. There is enlargement of the prostate gland. Normal abdominal wall. There are diffuse degenerative changes of the visualized lumbar spine. CT/Abdomen/Pelvis without Cont IMPRESSION: 1. Moderate right hydronephrosis due to a 1.1 cm obstructing stone in the right proximal ureter. 2. 3 mm nonobstructing stone of the left kidney 3. Colonic diverticulosis Electronically Signed: Cruz Navarro MD at 19:12 EDT , Service support ,
--- NOTE | 2019-09-24 18:11 | ED.VIS.GI ---
History of Present Illness Chief Complaint: Flank Pain Informant: Patient, Significant Other - Abdominal Pain/Flank Pain Onset: Today - around 6 hrs [employer] Context: Gradual Onset Timing: Continuous, Waxes and wanes Quality: Aching Location: Right Flank Current Severity: Severe Maximum Severity: Severe Worsened by: Nothing Relieved by: Nothing - Nausea/Vomiting/Emesis GI Symptom: Nausea, Vomiting Onset: Today Quality: Nonbilious. Negative for: Blood streaks - Diarrhea/Melena/Hematochezia GI Symptom: Negative for: Diarrhea, Melena, Hematochezia Associated Symptoms: Negative for: Dysuria, Frequency, Hematuria, Urgency Narrative: Patient states he feels like he is having another kidney stone and the pain is getting severe. It is on his right side, started in his back, but just in the past hour or 2 it feels like it is coming around to his right mid abdomen. Nothing radiating into his groin or testicles at this time. No hematuria or urinary symptoms. No fevers. Some nausea and he vomited once. He has passed 4 or so stones in the past, and has never required a procedure/surgery to get one out. The last time he had imaging was years ago, he has always had that at the [place] where [facility] gets the majority of his care. He states at one point, he caught 1 and took it to his doctor and they told him it was likely a calcium stone. He states recently, for the past 2 weeks or so for reflux symptoms, he has been taking a lot of Tums. Prior similar symptoms: Yes - w/ prior kidney stones - Past Medical History (1) Hypertension Status: Chronic (2) Kidney stones Status: Chronic (3) TIA (transient ischemic attack) Status: Chronic Past Medical History - Allergies and Home Meds Allergies/Adverse Reactions: Allergies adhesive Allergy (Verified 09/24/19 17:56) Rash [place] And Derivatives Allergy (Verified 09/24/19 17:56) Food Allergy Primary Care Physician: [facility] [Primary Care Provider] - Lives: Spouse/ Significant Other Smoking Status: Former smoker - Family History Maternal Family History: Reports: - - no CVA Review of Systems General: Denies: Chills, Fever, Sweats Eyes: Denies: Visual changes - bilaterally, Diplopia ENT: Denies: Rhinorrhea, Sore throat Cardiovascular: Denies: Chest pain, Palpitations Respiratory: Denies: Dyspnea, Cough, Dyspnea on exertion Gastrointestinal: Reports: Abdominal pain, Nausea, Vomiting. Denies: Diarrhea, Melena, Hematochezia Genitourinary: Denies: Dysuria, Hematuria, Frequency Musculoskeletal: Reports: Back pain. Denies: Swelling, Extremity Pain Skin: Denies: Rash, Wounds Neurological: Denies: Headache, Weakness, Numbness Physical Exam Vital Signs/Narrative: Vital Signs Temp Pulse Resp Pulse Ox 09/24/19 17:57 97.3 F L 115 H 18 94 Inital Vital Signs reviewed: Yes General: Well nourished, Well developed, Acute Distress - Mild, painful, pacing around the bed in the room Head: Normocephalic, Atraumatic Eyes: Perrl, EOMI ENT: Moist mucous membranes, No rhinorrhea Neck: Supple, Nontender Cardiovascular: Regular rate, Regular rhythm, No murmurs, Tachycardia - Mild Respiratory: No distress, CTA bilaterally, Chest nontender Abdomen: Soft, Nontender, Nondistended, Normal bowel sounds Back: Nontender, Normal Inspection, CVA tenderness - Right side only Extremities: Nontender, No edema Skin: Normal color, No rash, No Trauma Neurological: Alert, Oriented x3, Cranial nerves II-XII grossly intact, Normal Strength, Normal Sensation, Normal Gait Psychological: Normal affect, Normal Mood Diagnostic/Tx/Re-eval Impressions Abdomen/Pelvis CT 09/24/19 18:10 IMPRESSION: 1. Moderate right hydronephrosis due to a 1.1 cm obstructing stone in the right proximal ureter. 2. 3 mm nonobstructing stone of the left kidney 3. Colonic diverticulosis Electronically Signed: Cruz Navarro MD at 19:12 EDT , Service support , 09/24/19 18:10 Abdomen/Pelvis without Cont [CT] Stat Laboratory Results 09/24/19 19:50 Urine Color Yellow Urine Clarity Sl. Cloudy Urine pH 6.0 Ur Specific [place] 1.020 Urine Protein 30 H Urine Glucose (UA) Normal Urine Ketones Negative Urine Occult Blood 250 H Urine Nitrite Negative Urine Bilirubin Negative Urine Urobilinogen Normal Ur Leukocyte Esterase 25 H Urine RBC 25-50 SEEN Urine WBC 0-5 SEEN Ur Squamous Epith Cells 0-5 SEEN Urine Bacteria 0 SEEN Urine Mucus 0 SEEN - Medical Decision Making Patient was treated with morphine and Zofran and feels much better, pain is well controlled. CT showing a 1.1 cm proximal right ureteral stone with hydronephrosis. Urinalysis shows no infection. Discussed with Dr. Marcos who agrees with outpatient follow-up since his pain is well controlled, he was given prescriptions for Zofran and Percocet. We discussed reasons to return and patient is comfortable with that plan. ED Disposition - Plan for ED Patient: Disposition: Home or Assisted Living Diagnosis: Urolithiasis, Renal colic on right side Instructions: ED Renal Stone w Colic Prescriptions: Oxycodone HCl/Acetaminophen [Percocet 5/325] 1 tablet PO . Q4-6H PRN 3 Days #15 tablet PRN Reason: Pain Transmission Status: Sent to [facility] Ondansetron [Zofran Odt] 8 mg PO Q8H PRN PRN #20 tab PRN Reason: Nausea Transmission Status: Pending to [facility] Referrals: Driss Marcos MD [STAFF PHYSICIAN] - As soon as possible
[2019-09-24] MEDS: Ondansetron 4 MG/2 ML Vial IV (18:20)
[2019-09-24] MEDS: Morphine 4 MG/ML Syringe IV (18:21)
[2019-09-24 18:37] VITALS: BP 171/90; PULSE 67; RESP 16; O2SAT 96
[2019-09-24 19:59] LABS: Bacteria 0 SEEN /hpf (None Seen); Mucous, Urine 0 SEEN /hpf (<or=2+)
[2019-09-24 20:05] LABS: Color, Urine Yellow (Yellow); Glucose, Dipstick Normal (Normal); Ketone-Dipstick Negative (Negative); Leukocyte Esterase-Dipstick 25 /ul (Negative); Nitrite-Dipstick Negative (Negative); Occult Blood-Urine 250 /ul (Negative); Protein-Dipstick 30 mg/dl (Negative); Urine Bilirubin Dipstick Negative (Negative); Urine Clarity Sl. Cloudy (Clear); Urine Urobilinogen Normal (Normal)
[2019-09-24 20:20] LABS: Red Blood Cells-Urine 25-50 SEEN /hpf (0-5); Squamous Epithelial Cells - UA 0-5 SEEN /hpf (0-5); White Blood Cells 0-5 SEEN /hpf (0-5)
[2019-09-24 20:55] VITALS: BP 168/76; PULSE 78; RESP 17; O2SAT 94
== END 2019-09-24 21:15 | disposition home or self-care (01) ==
PROVIDERS: Emergency Provider Emergency Medicine
DX: N13.2 Hydronephrosis with renal and ureteral calculous obstruction (principal); I10 Essential (primary) hypertension; K57.30 Diverticulosis of large intestine without perforation or abscess without bleeding; Z86.73 Personal history of transient ischemic attack (TIA), and cerebral infarction without residual deficits; Z87.442 Personal history of urinary calculi; Z87.891 Personal history of nicotine dependence
CPT/HCPCS: 74176; 81001; 96374; 96375; 99283; A4216; J2405

== ENCOUNTER 2019-10-01 13:35 | Day surgery (SDC) | payer MEDICARE, SELFPAY ==
--- NOTE | 2019-10-01 13:40 | RAD_ITS ---
STUDY: X-RAY - ABDOMEN/PELVIS REASON FOR EXAM: Male, 69 years old. 13 MM RIGHT SIDE KIDNEY STONE. PRE ESWL AND STENT PLACEMENT TECHNIQUE: KUB. COMPARISON: CT abdomen pelvis 09/24/2019. FINDINGS: Normal visualized lung bases. Nonobstructive bowel gas pattern. Large stool burden, predominantly in the ascending and transverse colon. A small lower pole left renal calcification is noted. 1 cm right ureteral calcification is again identified at the L2 level, unchanged in position. No organomegaly. Soft tissues and bony structures are otherwise unremarkable. RAD/Abdomen Single View IMPRESSION: No change in position of right ureteral stone. Electronically Signed: Isabel Wilson MD at 19:28 EDT Tel , Service support ,
[2019-10-01 14:01] VITALS: BP 163/92; PULSE 66; RESP 16; TEMP 36.9; O2SAT 99; BMI 31.8
[2019-10-01] MEDS: Lactated Ringers 1,000 ML 100 ML IV (14:21)
[2019-10-01] MEDS: Cefazolin 2 GM in 0.9% Normal Saline 100 ML IV (15:07)
--- NOTE | 2019-10-01 15:12 | RAD_ITS ---
STUDY: X-RAY - ABDOMEN/PELVIS REASON FOR EXAM: Male, 69 years old. 13 MM RIGHT SIDE KIDNEY STONE. PRE ESWL AND STENT PLACEMENT TECHNIQUE: KUB. COMPARISON: CT abdomen pelvis 09/24/2019. FINDINGS: Normal visualized lung bases. Nonobstructive bowel gas pattern. Large stool burden, predominantly in the ascending and transverse colon. A small lower pole left renal calcification is noted. 1 cm right ureteral calcification is again identified at the L2 level, unchanged in position. No organomegaly. Soft tissues and bony structures are otherwise unremarkable. RAD/O.R. Fluoro for C-Arm IMPRESSION: No change in position of right ureteral stone. Electronically Signed: Isabel Wilson MD at 19:28 EDT Tel , Service support ,
--- NOTE | 2019-10-01 15:55 | OP.PCM_ITS ---
Report of Operation Date of Procedure: 10/01/19 Pre-Operative Diagnosis: Right ureteral calculi Post-Operative Diagnosis: Same Surgery/Procedure Performed:: Cystoscopy, right retrograde pyelogram, interpretation of fluoroscopic images, balloon dilation of the right ureter, right ureteroscopy laser lithotripsy of stone and right stent placement Description of Surgical Findings:: 69-year-old male with an obstructing stone in the mid right ureter presents for treatment of the stone, he was taken back to the operating room at the smooth induction of general anesthesia he was placed in dorsolithotomy position when of the bladder with a 21 Russian rigid cystourethroscope and cannulated the right ureter orifice with a Glidewire advance a wire up into the kidney over the wire advanced a balloon dilator balloon dilated the distal right ureter I then went over the wire with the ureteroscope encountered the stone, I then performed a retrograde pyelogram could see the stone clearly, and then I used a 270 ?m laser fiber and lasered the stone completely and tiny little pieces the stone migrated up to the kidney and I trapped the stone in the upper pole the kidney lasered on the low tiny piece of the should pass no major fragments were left. After lasering the stone completely then I put a wire through the ureteroscope backloaded off the ureteroscope push the stent up into the kidney once a stent was good position I pulled the wire the stent: The kidney bladder good position I pulled the string of the stent down to reposition the stone stent and then I drained the bladder at the stent string short to prevent extraction and next week on serum with a KUB and a cystoscopy stent removal. Type of Anesthesia:: General Drains: stent - Admit VTE Documentation VTE Present on Admission: No VTE Mechan Device Prophylaxis: SCD's
--- NOTE | 2019-10-01 16:00 | PCM.DC.URO ---
Discharge Diet: No Restrictions, Light diet - advance as tolerated Discharge Activity: Return to Normal Activity, May Not Drive - for 2 days. Additional Activity Instructions:: Please be aware that pain medications may cause nausea. You should typically eat light foods as you take your pain medication. Pain medication may cause constipation, if this is a problem for you, please discuss with your doctor. Allergies/Adverse Reactions: Allergies adhesive Allergy (Verified 09/28/19 11:30) Rash [place] And Derivatives Allergy (Verified 09/28/19 11:30) Food Allergy Medications to take at Discharge Aspirin [Aspirin, Baby] 81 mg PO DAILY@0800 03/19/14 Amlodipine [Norvasc] 2.5 mg PO DAILY 05/20/19 Cholecalciferol (VIT D3) [Vitamin D3] 1,000 mg PO DAILY 05/20/19 Metoprolol Tartrate 25 mg PO BID 05/20/19 Multivitamin [Daily Multiple Vitamin] 1 ea PO DAILY 05/20/19 Naproxen Sodium 220 mg PO BID 05/20/19 Ondansetron [Zofran Odt] 8 mg PO Q8H PRN PRN #20 tab 09/24/19 Oxycodone HCl/Acetaminophen [Oxycodone-Acetaminophen 5-325] 1 ea PO Q6H PRN 09/28/19 Orders to be completed after discharge: Abdomen Single View [RAD] Time Frame: 10/01/19, Facility: [facility], Location: [facility] Primary [facility] Physician: [facility] [Primary [facility] Provider] - Test Results: Test results from this visit will be discussed in further detail at your follow-up appointment, if applicable. Please Follow Up With: Driss Marcos MD When: please call to make an appointment.
--- NOTE | 2019-10-01 16:01 | PCM.HP.STD ---
Problem List (1) Kidney stones Status: Chronic History of Present Illness Date of Admission: 10/01/19 Chief Complaint: Right mid ureteral calculi The patient is a 69 year old male with a right ureteral calculi presents today for treatment of the stone Past Medical History Past Medical History (Chronic Problems): Chronic Problems (Last Updated 05/20/19 @ 14:[address] Andrews Hernadez DO) TIA (transient ischemic attack) (Chronic) Hypertension (Chronic) Kidney stones (Chronic) Medical History: Medical History (Last Updated 05/20/19 @ 14:[address] Andrews Hernadez DO) HTN (hypertension) I10 Allergies adhesive Allergy (Verified 09/28/19 11:30) Rash [place] And Derivatives Allergy (Verified 09/28/19 11:30) Food Allergy Home Medications: Ambulatory Orders Medication Instructions Recorded Aspirin [Aspirin, Baby] 81 mg PO DAILY@0800 03/19/14 Amlodipine [Norvasc] 2.5 mg PO DAILY 05/20/19 Cholecalciferol (VIT D3) [Vitamin 1,000 mg PO DAILY 05/20/19 D3] Metoprolol Tartrate 25 mg PO BID 05/20/19 Multivitamin [Daily Multiple 1 ea PO DAILY 05/20/19 Vitamin] Naproxen Sodium 220 mg PO BID 05/20/19 Ondansetron [Zofran Odt] 8 mg PO Q8H PRN PRN #20 tab 09/24/19 Oxycodone HCl/Acetaminophen 1 ea PO Q6H PRN 09/28/19 [Oxycodone-Acetaminophen 5-325] Surgical History: no surgical history Psychiatric History: No pertinent psych hx Smoking Status: Never smoker Tobacco Use: Non-smoker - *Family History Maternal History Items: - - no CVA Review of Systems Constitutional: Denies: Chills, Fever, Weight Change HEENT: Denies: Head Aches, Sinus Congestion, Sinus Drainage Cardiovascular: Denies: Chest Pain, Palpitations Respiratory: Denies: Cough, Shortness of breath at rest, Sputum production Gastrointestinal: Denies: Abdominal Pain, Nausea, Vomiting Genitourinary: Denies: Dysuria Musculoskeletal: Denies: Joint Pain, Joint Tenderness Skin: Denies: Rash, Wounds Neurological: Denies: Numbness, Tingling, Focal weakness Psychiatric: Denies: Anxiety, Depression, Homicidal Ideations, Suicidal Ideations Hematologic/ Lymphatic: Denies: Easy Bruising, Easy Bleeding VTE Information - Inpt Only VTE Present on Admission: No - Physical Exam Vitals/I&O's: Vital Signs Temp Pulse Resp BP Pulse Ox 98.4 F 66 16 163/92 H 99 10/01/19 14:01 10/01/19 14:01 10/01/19 14:01 10/01/19 14:01 10/01/19 14:01 Oxygen Delivery Method Room Air Weight: 89.6 kg Body Mass Index (BMI) 31.8 Finger Stick Blood Glucose 89 Intake and Output for Last 24 Hours 09/29/19 09/30/19 10/01/19 23:59 23:59 23:59 Intake Total 110 / 110 Balance 110 / 110 General: Alert, Oriented x3, Cooperative HEENT: Atraumatic, PERRLA, EOMI, Normocephalic Neck: Supple, No JVD, Negative Carotid Bruits Lungs: Clear to auscultation, Normal air movement Cardiovascular: Regular rate, No murmurs Abdomen: Bowel Sounds Present, Soft, Non Tender Extremities: No edema, Capillary Refill Less than 3 Seconds Skin: No rashes, No breakdown Musculoskeletal: No Tenderness to Palpation of Joints or Extremities Neurological: Cranial nerves II-XII grossly intact Psych/Mental Status: Normal Affect, Appropriate Current Medications Cefazolin Sodium 2 gm/ Sodium (Chloride) 110 mls @ 150 mls/hr IV PREOP ONE Stop: 10/01/19 16:03 Last Infusion: 10/01/19 15:36 Dose: Infused Documented by: Lactated Ringer's () 1,000 mls @ 100 mls/hr IV .Q10H [facility] Last Admin: 10/01/19 14:21 Dose: 100 mls/hr Documented by: Assessment/Plan All Active Problems (Last Updated 05/20/19 @ 14:[address] Andrews Hernadez, DO) Ataxia (Acute) Plan to proceed with right ureteroscopy laser lithotripsy and stone and stent placement
[2019-10-01 16:03] VITALS: BP 156/87; BP 163/92; PULSE 70; RESP 16; TEMP 36.4; O2SAT 97
[2019-10-01] MEDS: Ketorolac 15 MG/ML Vial IV (16:11)
[2019-10-01 16:15] VITALS: BP 156/95; BP 163/92; PULSE 69; RESP 16; O2SAT 98
[2019-10-01 16:30] VITALS: BP 163/92; BP 168/94; PULSE 67; RESP 16; TEMP 36.3; O2SAT 99
[2019-10-01 17:38] VITALS: BP 163/92; BP 178/93; PULSE 74; RESP 16; TEMP 36.1; O2SAT 97
== END 2019-10-01 17:39 | disposition home or self-care (01) ==
LOC: SDC 13:35 → AC 13:38
PROVIDERS: Anesthesiology; Referring Provider Urology; Visit Provider Urology
PROC: (CPT 50590; principal; 2019-10-01 15:00)
DX: N20.2 Calculus of kidney with calculus of ureter (principal); I10 Essential (primary) hypertension; Z79.82 Long term (current) use of aspirin; Z86.73 Personal history of transient ischemic attack (TIA), and cerebral infarction without residual deficits; Z87.442 Personal history of urinary calculi; Z11.59 Encounter for screening for other viral diseases
CPT/HCPCS: 00918; 52356; 74018; 76000; 87635; G2023; J7120; C1769; C2617; J2405; U0003

== ENCOUNTER 2020-05-31 11:28 | Emergency (ER) | payer OTHER, MEDICARE, SELFPAY ==
[2020-05-31 11:30] VITALS: BP 156/94; PULSE 89; RESP 16; TEMP 36.7; O2SAT 96; BMI 30.2
--- NOTE | 2020-05-31 11:59 | ED.DCSUM_ITS ---
History of Present Illness Chief Complaint: Male Pain/Injury Narrative: 70-year-old male presenting with right suprapubic pain. He states he noticed it this morning. He states it is 3 out of 10 on the pain scale. He did not feel a pop. He states he just noticed it in the shower. Its minimally tender to palpation. Patient states he has a history of varicoceles on his testicles and states these have resolved and he is concerned that the varicosities have moved up into his right suprapubic area. Patient states he feels well. He does not have any nausea or vomiting. He does not have any urinary complaints or bowel complaints. Patient called his doctor at the [place] who told him to come directly to the emergency room. - Past Medical History (1) Hypertension Status: Chronic (2) Kidney stones Status: Chronic (3) TIA (transient ischemic attack) Status: Chronic Past Medical History - Allergies and Home Meds Allergies/Adverse Reactions: Allergies adhesive Allergy (Verified 05/31/20 11:31) Rash [place] And Derivatives Allergy (Verified 05/31/20 11:31) Food Allergy Primary Care Physician: [facility],[place] [Primary Care Provider] - Prior records reviewed: Yes Past Medical History: - - Reviewed in problem list Surgical History: noncontributory Lives: Spouse/ Significant Other Smoking Status: Never smoker Alcohol: None Drugs: None - Family History Maternal Family History: Reports: - - no CVA Review of Systems General: Denies: Chills, Fever, Sweats Eyes: Denies: Visual changes - bilaterally, Diplopia ENT: Denies: Rhinorrhea, Sore throat Cardiovascular: Denies: Chest pain, Palpitations Respiratory: Denies: Dyspnea, Cough, Dyspnea on exertion Gastrointestinal: Reports: Abdominal pain. Denies: Nausea, Vomiting, Diarrhea, Constipation Genitourinary: Denies: Dysuria, Hematuria Musculoskeletal: Denies: Myalgias, Arthralgias Skin: Denies: Rash, Abscess Neurological: Denies: Headache, Weakness Psych: Denies: Depression, Anxiety Physical Exam Vital Signs/Narrative: Vital Signs Temp Pulse Resp BP Pulse Ox 05/31/20 11:30 98.1 F 89 16 156/94 H 96 Inital Vital Signs reviewed: Yes General: Well nourished, No Acute Distress Head: Normocephalic, Atraumatic Eyes: Perrl, EOMI ENT: No rhinorrhea Cardiovascular: Regular rate, Regular rhythm Abdomen: Soft, Nondistended, Tender - Mild right-sided suprapubic tenderness. No mass. Back: Nontender, Normal Inspection Extremities: Nontender, No edema Skin: Normal color, No rash Neurological: Alert, Oriented x3 Psychological: Normal affect, Normal Mood Diagnostic/Tx/Re-eval Clinical Impression(s) from Imaging Studies Abdomen/Pelvis CT 05/31/20 11:59 IMPRESSION: Stable multiple small hepatic cysts. Fatty infiltration of the liver. Inhomogeneous enlargement of the prostate with indentation of the bladder base. Diffuse bladder wall thickening. Electronically Signed: Brian Porter MD at 13:10 EDT , Service support , Laboratory Data 05/31/20 05/31/20 05/31/20 12:05 12:05 12:15 WBC 5.4 RBC 5.22 Hgb 15.5 Hct 46.3 MCV 88.7 MCH 29.7 MCHC 33.5 RDW Std Deviation 42.0 RDW Coeff of Stephen 12.8 Plt Count 218 MPV 10.0 Immature Gran % (Auto) 0.200 Neut % (Auto) 65.1 Lymph % (Auto) 22.3 [place] % (Auto) 8.0 Eos % (Auto) 3.5 Baso % (Auto) 0.9 Absolute Neuts (auto) 3.5 Absolute Lymphs (auto) 1.20 Nucleated RBC % 0 Sodium 141 Potassium 3.6 Chloride 108 H Carbon Dioxide 28.0 Anion Gap 5 BUN 17 Creatinine 0.92 Estim Creat Clear Calc 65.50 Est GFR (MDRD) Af Amer 103 Est GFR (MDRD) Non-Af 85 BUN/Creatinine Ratio 18.4 Glucose 93 Calcium 9.4 Urine Color Yellow Urine Clarity Sl. Cloudy Urine pH 6.5 Ur Specific [place] 1.015 Urine Protein Negative Urine Glucose (UA) Normal Urine Ketones Negative Urine Occult Blood Negative Urine Nitrite Negative Urine Bilirubin Negative Urine Urobilinogen Normal Ur Leukocyte Esterase 25 H Urine RBC 0 SEEN Urine WBC 0-5 SEEN Ur Squamous Epith Cells 0-5 SEEN Urine Bacteria 0 SEEN Urine Mucus 1+ - Medical Decision Making 70-year-old male presenting for evaluation of a right suprapubic pain which he noticed this morning. He states that he can palpate it however I do not palpate any masses. He states is a little tender on exam. Would work and urinalysis which is all within normal limits. CT scan of the abdomen pelvis with IV contrast shows thickened bladder ram as well as enlarged prostate. It does not identify any masses or hernias. Patient counseled on these findings visual follow-up with his doctor at the [place]. Impression: 1. Suprapubic pain ED Disposition - Plan for ED Patient: Disposition: Home or Assisted Living Instructions: ED Unknown Causes of Abdominal ... Referrals: [facility] [Primary Care Provider] -
--- NOTE | 2020-05-31 11:59 | CT_ITS ---
STUDY: CT ABDOMEN AND PELVIS WITH CONTRAST REASON FOR EXAM: Male, 70 years old. Abdominal pain RADIATION DOSAGE (If Supplied By Facility): CTDIvol = ( 11.98 ) mGy, DLP = ( 679.57 ) mGycm TECHNIQUE: Transaxial images were obtained from the dome of the diaphragm to the symphysis pubis without oral contrast. IV 100mL Isovue-300 was administered. Sagittal and coronal images were reconstructed. Individualized dose optimization techniques were used for this CT. COMPARISON: Comparison is made with prior study dated 09/24/2019. FINDINGS: Calcified granuloma in the right lower lobe. Coronary artery calcification. There is decreased attenuation of the liver consistent with steatosis. Scattered subcentimeters cysts in the liver. Normal gallbladder and extrahepatic biliary system. There is a benign calcified granuloma of the spleen. Normal pancreas. Normal bilateral adrenal glands. Normal right kidney. The previously seen proximal right ureteral calculus is not seen at this time. Normal left kidney. There is a small hiatal hernia. Normal small intestine. There are multiple colonic diverticula consistent with diverticulosis. The appendix is visualized and appears normal. There is scattered atherosclerotic calcification of the abdominal aorta, without a demonstrated aneurysm. Normal inferior vena cava. Normal retroperitoneum. There is evidence of diffuse bladder wall thickening. There is enlargement of the prostate gland. It measures 7.2 cm x 5.1 cm. Central calcifications are seen. There is indentation at the bladder base due to the prostatic enlargement. There is a small umbilical hernia containing fat. There are mild degenerative changes of the visualized lumbar spine. CT/Abdomen/Pelvis W IV Cont ONLY IMPRESSION: Stable multiple small hepatic cysts. Fatty infiltration of the liver. Inhomogeneous enlargement of the prostate with indentation of the bladder base. Diffuse bladder wall thickening. Electronically Signed: Brian Porter MD at 13:10 EDT , Service support ,
[2020-05-31 12:17] LABS: Absolute Neutrophil Count 3.5 X10^3/uL (2.0-7.7); Basophil# 0.05 X10^3/uL; Basophil% 0.9 % (0-1); Eosinophil# 0.19 X10^3/uL; Eosinophils% 3.5 % (0-5); Hematocrit 46.3 % (40-54); Hemoglobin 15.5 g/dL (13.0-16.5); Lymphocyte % 22.3 % (19-41); Mean Corp Hgb Conc 33.5 g/dL (32-36); Mean Corpuscular Hgb 29.7 pg (27.0-32.0); Mean Corpuscular Volume 88.7 fL (80-94); Monocyte# 0.43 X10^3/uL; NRBC Flagged by Analyzer 0 % (0-5); Neutrophil # 3.49 X10^3/uL (2.7-7.7); Neutrophil % 65.1 % (47-70); Platelet Count 218 K/mm3 (150-450); RBC Distribution Width CV 12.8 % (11.6-14.6); Red Blood Count 5.22 M/mm3 (4.6-6.2); White Blood Count 5.4 K/mm3 (4.4-11.0)
[2020-05-31 12:19] LABS: Bacteria 0 SEEN /hpf (None Seen); Red Blood Cells-Urine 0 SEEN /hpf (0-5)
[2020-05-31 12:25] LABS: Color, Urine Yellow (Yellow); Glucose, Dipstick Normal (Normal); Ketone-Dipstick Negative (Negative); Leukocyte Esterase-Dipstick 25 /ul (Negative); Nitrite-Dipstick Negative (Negative); Occult Blood-Urine Negative /ul (Negative); Protein-Dipstick Negative (Negative); Specific Gravity, Urine 1.015 (1.002-1.030); Urine Bilirubin Dipstick Negative (Negative); Urine Clarity Sl. Cloudy (Clear); Urine Urobilinogen Normal (Normal); Urine pH 6.5 (5.0 - 8.0)
[2020-05-31 12:30] LABS: Anion Gap 5 (5-15); BUN 17 mg/dL (7-18); BUN/Creat Ratio 18.4 RATIO (10-20); Calcium,Total 9.4 mg/dL (8.5-10.1); Chloride 108 mmol/L (98-107); Creatinine, Serum 0.92 mg/dL (0.70-1.30); EST Glomerular Filtration Rate 85 mL/min (>60); Est Glom Filt Rate - Afr Amer 103 mL/min (>60); Glucose 93 mg/dL (74-106); Potassium 3.6 mmol/L (3.5-5.1); Sodium Level 141 mmol/L (136-145)
[2020-05-31 12:31] LABS: Mucous, Urine 1+ /hpf (<or=2+); Squamous Epithelial Cells - UA 0-5 SEEN /hpf (0-5); White Blood Cells 0-5 SEEN /hpf (0-5)
[2020-05-31 14:31] VITALS: PULSE 75; RESP 18; O2SAT 97
== END 2020-05-31 14:32 | disposition home or self-care (01) ==
PROVIDERS: Emergency Provider Student in an Organized Health Care Education/Training Program
DX: R10.2 Pelvic and perineal pain (principal); N40.0 Benign prostatic hyperplasia without lower urinary tract symptoms; I10 Essential (primary) hypertension; Z86.73 Personal history of transient ischemic attack (TIA), and cerebral infarction without residual deficits; Z87.442 Personal history of urinary calculi; K76.89 Other specified diseases of liver; K76.0 Fatty (change of) liver, not elsewhere classified
CPT/HCPCS: 74177; 80048; 81001; 85025; 99282; Q9967

== ENCOUNTER 2020-11-13 09:23 | Emergency (ER) | payer OTHER, MEDICARE, SELFPAY ==
[2020-11-13 09:24] VITALS: BP 114/80; PULSE 92; RESP 18; TEMP 37; O2SAT 97; BMI 29.4
--- NOTE | 2020-11-13 09:44 | EDS_ITS ---
HPI History of Present Illness Chief Complaint: General Illness Informant: patient Narrative Narrative: Patient is a 70-year-old male who presents to the emergency department for concern for COVID-19. He states that he has developed a cough, body aches since Friday. He was around his brother who recently tested positive as well. His is being seen for similar symptoms here in the ED now. Patient denies any significant chest pain or shortness of breath. He has not been taking anything for his symptoms. He has not been vaccinated. He is having subjective fevers and chills. PFSH PFS Medical History HTN (hypertension) Home Medications amlodipine 2.5 mg PO DAILY 05/20/19 [History Last Taken 05/20/19] cholecalciferol (vitamin D3) 1,000 mg PO DAILY 05/20/19 [History Last Taken 05/20/19] multivitamin 1 ea PO DAILY 05/20/19 [History Last Taken 05/20/19] naproxen sodium 220 mg PO BID 05/20/19 [History Last Taken 05/20/19] Allergy/AdvReac Type Severity Reaction Status Date / Time adhesive Allergy Rash Verified 11/13/20 13:48 [place] And Derivatives Allergy Food Verified 11/13/20 13:48 Allergy Social History Smoking Status: Never smoker ROS ROS ED Constitutional Constitutional ED: Reports chills, fever(s) and subjective Eyes Eyes: Denies change in vision ENT ENT ED: Denies epistaxis or rhinorrhea Cardiovascular Cardiovascular: Denies chest pain or palpitations Respiratory/Chest Respiratory/Chest: Reports cough; Denies dyspnea or dyspnea on exertion Gastrointestinal Gastrointestinal: Denies abdominal pain, diarrhea, nausea or vomiting Genitourinary Genitourinary ED: Denies dysuria, hematuria or urinary frequency Musculoskeletal Musculoskeletal: Reports myalgias Integumentary Denies rash Neurologic Neurologic: Denies dizziness EXAM Physical Exam Const Vital Signs: 11/13/20 09:24 11/13/20 09:50 11/13/20 10:52 Temperature 98.6 F Temperature Source Temporal Pulse Rate 92 76 Respiratory Rate 18 15 Respiratory Effort Normal Non-Labored Respiratory Pattern Normal Blood Pressure 114/80 139/74 H Blood Pressure Mean 91 Pulse Ox 97 98 Oxygen Delivery Method Room Air Positive well nourished and well developed General Appearance ED: well developed and NAD HEENT Reports normocephalic and head/scalp atraumatic Eyes PERRL and EOMs intact bilaterally Neck supple Chest Wall inspection of chest normal Resp normal respiratory effort and clear to auscultation bilaterally Auscultation: Negative for rales, rhonchi or wheezes Cardio regular rate, regular rhythm and no murmurs GI non-distended Palpation: soft Extremity normal to inspection General Extremety ED: Negative for edema General Extremity: Negative for edema Neuro no sensory deficits noted Sensorium / Orientation: alert Motor Exam: strength 5/5 throughout Psych mental status grossly normal Skin no rashes or lesions noted MDM MDM MDM Narrative Medical decision making narrative: Patient presents to the emergency department for concern for Covid infection. He was around a sick contact and has developed symptoms over the past 3 days. On arrival to the ED vital signs within normal limits. He is in no acute distress. Covid swab will be obtained at this time. Patient's Covid swab did come back positive. He is given referral for monoclonal antibody treatment. This time he does not meet any criteria for hospital admission. He is overall well-appearing. I do recommend that he quarantine and obtain a home pulse oximeter. Return precautions are reviewed with him. He understands and is agreeable this plan. Discharged home in stable condition. All questions were answered. Discharge Plan Triage Chief Complaint: General Illness ED Provider: Dc Heller Dx/Rx/DC Orders Clinical Impression: COVID-19 Instructions: Coronavirus Disease 2019 (COVID-19): Caring for Yourself or Others Prescriptions: No Action multivitamin 1 EACH tablet 1 ea PO DAILY RF: 0 amlodipine 2.5 MG tablet 2.5 mg PO DAILY RF: 0 naproxen sodium 220 MG capsule 220 mg PO BID RF: 0 cholecalciferol (vitamin D3) 1,000 UNIT tablet 1,000 mg PO DAILY RF: 0 Other Ambulatory Orders: COVID Outpatient Monoclonal Antibody Referral (Routine) Location: None Selected Ordered By: Dr. Dc Heller [facility] [facility]errals[place] [facility] [Primary Care Provider] - 1 Week Disposition Disposition: Home, Self Care Discharge Date/Time: 11/13/20 10:54
[2020-11-13 10:52] VITALS: BP 139/74; PULSE 76; RESP 15; O2SAT 98
== END 2020-11-13 10:54 | disposition home or self-care (01) ==
PROVIDERS: Emergency Provider Emergency Medicine
DX: U07.1 COVID-19 (principal); I10 Essential (primary) hypertension
CPT/HCPCS: 87426; 99282

== ENCOUNTER 2020-11-14 14:52 | Outpatient (CLI) | payer OTHER, MEDICARE, SELFPAY ==
[2020-11-14] MEDS: 0.9% Saline Lock 10 ML Syringe IV (15:09)
[2020-11-14 15:12] VITALS: BP 132/72; PULSE 87; RESP 18; TEMP 39.2; O2SAT 96; BMI 29.8
[2020-11-14 15:48] VITALS: BP 137/76; PULSE 84; RESP 18; TEMP 37.3; O2SAT 99
[2020-11-14 16:35] VITALS: BP 137/76; PULSE 84; RESP 18; TEMP 38.1; O2SAT 95
== END 2020-11-14 16:48 | disposition home or self-care (01) ==
LOC: ICUOUT 14:52 → MS2 14:53
PROVIDERS: Referring Provider Nurse Practitioner Acute Care; Visit Provider Nurse Practitioner Acute Care
DX: Z23 Encounter for immunization (principal); U07.1 COVID-19
CPT/HCPCS: J7050; M0243; A4216; Q0244

== ENCOUNTER 2020-11-17 08:07 | Emergency (ER) | payer OTHER, MEDICARE, SELFPAY ==
[2020-11-17 08:07] VITALS: BP 110/71; PULSE 76; RESP 20; TEMP 36.6; O2SAT 97; BMI 28.2
--- NOTE | 2020-11-17 09:27 | EX.ED.DYSGE1 ---
HPI History of Present Illness Chief Complaint: General Illness Narrative Narrative: 70-year-old male with history of COVID-19 diagnosis presenting for concern for dehydration. Patient states that he does not feel like he can drink enough. Patient states that he is not vomiting. He does feel like he is lightheaded. Patient is denying any chest pain or shortness of breath. He still has a cough. He no longer has fevers or chills. He was seen in the ER previously and discharged home. He does not feel like he needs to be admitted he just wants to be evaluated. [facility] Medical History HTN (hypertension) Home Medications cholecalciferol (vitamin D3) 1,000 mg PO DAILY 05/20/19 [History Last Taken 05/20/19] multivitamin 1 ea PO DAILY 05/20/19 [History Last Taken 05/20/19] amlodipine 10 mg PO DAILY 11/14/20 [History Last Taken Unknown] hydroxychloroquine 400 mg PO DAILY 11/14/20 [History Last Taken Unknown] lisinopril 10 mg PO DAILY 11/14/20 [History Last Taken Unknown] Allergy/AdvReac Type Severity Reaction Status Date / Time adhesive Allergy Rash Verified 11/17/20 08:09 [place] And Derivatives Allergy Food Verified 11/17/20 08:09 Allergy Social History Smoking Status: Never smoker ROS ROS ED Constitutional Constitutional ED: Denies chills or fever(s) Eyes Eyes: Denies blurry vision or diplopia ENT ENT ED: Denies rhinorrhea or sore throat Cardiovascular Cardiovascular: Denies chest pain or palpitations Respiratory/Chest Respiratory/Chest: Reports cough; Denies dyspnea Gastrointestinal Gastrointestinal: Reports nausea; Denies abdominal pain, constipation, diarrhea or vomiting Genitourinary Genitourinary ED: Denies dysuria or hematuria Musculoskeletal Musculoskeletal: Denies arthralgias or myalgias Integumentary Denies Abrasions or rash Neurologic Neurologic: Denies headache(s) or paresthesias EXAM Physical Exam Const Vital Signs: 11/17/20 08:07 11/17/20 09:48 Temperature 97.9 F 97.9 F Temperature Source Temporal Temporal Pulse Rate 76 76 Respiratory Rate 20 H 20 H Respiratory Effort Normal Blood Pressure 110/71 110/71 Blood Pressure Mean 84 84 Pulse Ox 97 97 Oxygen Delivery Method Room Air Room Air Positive well nourished General Appearance ED: NAD; Negative for pallor HEENT Reports moist mucous membranes Negative for trauma Eyes PERRL and EOMs intact bilaterally Chest Wall inspection of chest normal and palpation of chest normal Resp normal respiratory effort and clear to auscultation bilaterally Cardio regular rate and regular rhythm Extremity normal to inspection General Extremety ED: Negative for edema or tenderness General Extremity: Negative for edema Neuro oriented x3, CN's II-XII intact bilaterally and no sensory deficits noted Sensorium / Orientation: alert Motor Exam: strength 5/5 throughout Psych mental status grossly normal Skin no rashes or lesions noted and no wounds General Skin Exam: Negative for jaundice or pallor MDM MDM MDM Narrative Medical decision making narrative: Patient presenting for feeling lightheaded however he is walking around the room talking to me and does not appear to be dizzy or weak. He does not have any other significant complaints except for feeling thirsty. He will be given IV fluids and I will perform screening labs. Patient refused a chest x-ray because he states he does not feel as if his cough has gotten worse. He was given a liter of IV fluids. Creatinine is normal. CBC shows a of platelets of 130. Total bilirubin is slightly elevated at 1.10. Patient work-up ultimately unremarkable. Patient comfortable being discharged home. He is counseled to hydrate. He is given return precautions. Impression: 1. History of COVID-19 pneumonitis 2. Dehydration Lab Data Attestation: I reviewed the patient's lab results. Labs: Laboratory Results - last 24 hr 11/17/20 11/17/20 11/17/20 09:30 09:30 09:30 WBC 4.4 RBC 5.07 Hgb 15.1 Hct 44.8 MCV 88.4 MCH 29.8 MCHC 33.7 RDW Std Deviation 39.8 RDW Coeff of Stephen 12.3 Plt Count 130 L MPV 11.0 Immature Gran % (Auto) 0.200 Neut % (Auto) 66.6 Lymph % (Auto) 23.6 [place] % (Auto) 9.4 Eos % (Auto) 0.0 Baso % (Auto) 0.2 Absolute Neuts (auto) 2.9 Absolute Lymphs (auto) 1.03 Nucleated RBC % 0 Sodium 136 Potassium 3.8 Chloride 104 Carbon Dioxide 27.0 Anion Gap 5 BUN 19 H Creatinine 0.93 Estim Creat Clear Calc 64.79 Est GFR (MDRD) Af Amer 102 Est GFR (MDRD) Non-Af 85 BUN/Creatinine Ratio 20.4 H Glucose 91 Lactic Acid 0.8 Calcium 8.7 Total Bilirubin 1.10 H AST 36 ALT 44 Alkaline Phosphatase 69 Troponin I High Sens 10 Total Protein 7.6 Albumin 3.6 Globulin 4.0 Albumin/Globulin Ratio 0.9 Discharge Plan Triage Chief Complaint: General Illness ED Provider: Justo Miller Dx/Rx/DC Orders Instructions: Coronavirus Disease 2019 (COVID-19): Caring for Yourself or Others, Dehydration Prescriptions: No Action multivitamin 1 EACH tablet 1 ea PO DAILY RF: 0 cholecalciferol (vitamin D3) 1,000 UNIT tablet 1,000 mg PO DAILY RF: 0 amlodipine 10 mg tablet 10 mg PO DAILY RF: 0 lisinopril 10 mg tablet 10 mg PO DAILY RF: 0 hydroxychloroquine 200 mg Tablet 400 mg PO DAILY RF: 0 [facility] [facility] [facility] [Primary [place] Provider] - Disposition Disposition: Home, Self Care
[2020-11-17 09:43] LABS: Absolute Lymphocyte Count 1.03 X10^3/uL (0.83-4.51); Absolute Neutrophil Count 2.9 X10^3/uL (2.0-7.7); Basophil# 0.01 X10^3/uL; Basophil% 0.2 % (0-1); Hematocrit 44.8 % (40-54); Hemoglobin 15.1 g/dL (13.0-16.5); Lymphocyte # 1.03 X10^3/ul (0.83-4.51); Lymphocyte % 23.6 % (19-41); Mean Corp Hgb Conc 33.7 g/dL (32-36); Mean Corpuscular Hgb 29.8 pg (27.0-32.0); Mean Corpuscular Volume 88.4 fL (80-94); Monocyte# 0.41 X10^3/uL; Monocyte% 9.4 % (0-10); NRBC Flagged by Analyzer 0 % (0-5); Neutrophil % 66.6 % (47-70); Platelet Count 130 K/mm3 (150-450); RBC Distribution Width CV 12.3 % (11.6-14.6); RBC Distribution Width SD 39.8 fl (35.1-43.9); Red Blood Count 5.07 M/mm3 (4.6-6.2); White Blood Count 4.4 K/mm3 (4.4-11.0)
[2020-11-17 09:48] VITALS: BP 110/71; PULSE 76; RESP 20; TEMP 36.6; O2SAT 97
[2020-11-17 10:05] LABS: ALB/GLOB Ratio 0.9 RATIO (0.9-2.4); AST(SGOT) 36 U/L (15-37); Alanine Aminotransfer ALT/SGPT 44 U/L (16-61); Albumin, Serum 3.6 g/dL (3.2-5.0); Alkaline Phosphatase 69 U/L (45-117); Anion Gap 5 (5-15); BUN 19 mg/dL (7-18); BUN/Creat Ratio 20.4 RATIO (10-20); Calcium,Total 8.7 mg/dL (8.5-10.1); Chloride 104 mmol/L (98-107); Creatinine, Serum 0.93 mg/dL (0.70-1.30); EST Glomerular Filtration Rate 85 mL/min (>60); Est Glom Filt Rate - Afr Amer 102 mL/min (>60); Estimated Creatinine Clearance 64.79 ml/min; Glucose 91 mg/dL (74-106); Potassium 3.8 mmol/L (3.5-5.1); Protein, Total 7.6 g/dL (6.4-8.2); Sodium Level 136 mmol/L (136-145); Troponin-I HS 10 pg/mL (3.0-78.0)
[2020-11-17 10:10] LABS: Lactic Acid 0.8 mmol/L (0.4-1.9)
[2020-11-17 11:28] VITALS: BP 156/85; PULSE 79; RESP 18; O2SAT 96
== END 2020-11-17 11:30 | disposition home or self-care (01) ==
PROVIDERS: Emergency Provider Student in an Organized Health Care Education/Training Program
DX: E86.0 Dehydration (principal); Z86.16 Personal history of COVID-19; I10 Essential (primary) hypertension; R05 Cough
CPT/HCPCS: 80053; 83605; 84484; 85025; 99284

== ENCOUNTER 2021-08-31 09:50 | Emergency (ER) | payer OTHER, SELFPAY ==
[2021-08-31 09:52] VITALS: BP 157/84; PULSE 68; RESP 17; TEMP 36.4; O2SAT 99
--- NOTE | 2021-08-31 10:09 | CT_ITS ---
STUDY: CT ABDOMEN AND PELVIS WITHOUT CONTRAST REASON FOR EXAM: Male, 71 years old. Right flank pain. History of kidney stones. RADIATION DOSAGE (If Supplied By Facility): CTDIvol = ( 11.92 ) mGy, DLP = ( 586.64 ) mGycm TECHNIQUE: Transaxial images were obtained from the dome of the diaphragm to the symphysis pubis without oral contrast, and without intravenous contrast. Sagittal and coronal images were reconstructed. Individualized dose optimization techniques were used for this CT. COMPARISON: Comparison is made with prior study of 05/31/2020. FINDINGS: 1 cm calcified granuloma in the right lower. EKG electrodes are seen. There is decreased attenuation of the liver consistent with steatosis. Scattered small intrahepatic cysts. Normal gallbladder and extrahepatic biliary system. There is a benign calcified granuloma of the spleen. Normal pancreas. Normal bilateral adrenal glands. Mild degree of nonspecific bilateral perinephric stranding. Normal visualized stomach. Normal small intestine. There are scattered colonic diverticula consistent with diverticulosis. The appendix is visualized and appears normal. There is scattered atherosclerotic calcification of the abdominal aorta, without a demonstrated aneurysm. Normal inferior vena cava. Normal retroperitoneum. Normal urinary bladder. There is enlargement of the prostate gland. The prostate measures 7.3 cm x 5.5 cm. This causes indentation of the bladder base. Central prostatic calcifications. There is a small umbilical hernia containing fat. There are mild degenerative changes of the visualized lumbar spine. CT/Abdomen/Pelvis without Cont IMPRESSION: Mild degree of nonspecific bilateral perinephric stranding. No obstructive uropathy is seen at this time. Fatty infiltration of the liver. Stable small hepatic cysts. Heterogeneous enlargement of the prostate with indentation at the bladder base. Electronically Signed: Brian Porter MD at 10:49 EDT ,
--- NOTE | 2021-08-31 10:10 | EX.ED.DYSGE1 ---
HPI History of Present Illness Chief Complaint: Flank Pain Informant: patient Narrative Narrative: 71-year-old male presents for the evaluation of right flank pain. Patient states that over the last weekend he was having some significant pain just above the pelvis and the right lower back. He states that over the past few days his decreased intensity down to more of a dull ache. [facility] with [facility] who recommended he come to the emergency room as he has a history of kidney stones. He states that occasionally it will hurt with touch otherwise nothing seems to make it worse. He denies any urinary symptoms. No trauma. No rashes. [facility] Medical History (Updated 08/31/21 @ 11:[address] Shailesh Ramirez DO) HTN (hypertension) Kidney stones Home Medications cholecalciferol (vitamin D3) 25 mcg (1,000 unit) tablet 1,000 mg PO DAILY supplement 05/20/19 [History Last Taken 05/20/19] multivitamin 1 ea PO DAILY supplement 05/20/19 [History Last Taken 05/20/19] amlodipine 10 mg tablet 10 mg PO DAILY 11/14/20 [History Last Taken Unknown] hydroxychloroquine 200 mg tablet 400 mg PO DAILY 11/14/20 [History Last Taken Unknown] lisinopril 10 mg tablet 10 mg PO DAILY 11/14/20 [History Last Taken Unknown] Allergy/AdvReac Type Severity Reaction Status Date / Time adhesive Allergy Rash Verified 08/31/21 09:50 Posey And Derivatives Allergy Food Verified 08/31/21 09:50 Allergy Surgical History (Updated 08/31/21 @ 10:15 by Maritza Ovalles) Hx of tonsillectomy Social History (Updated 08/31/21 @ 10:[address] Shailesh Ramirez DO) current gender identity: male Smoking Status: Never smoker substance use type: does not use ROS ROS ED Constitutional Constitutional ED: Denies chills or weight loss Eyes Eyes: Denies change in vision or diplopia ENT ENT ED: Denies ear pain, rhinorrhea or sore throat Cardiovascular Cardiovascular: Denies chest pain, orthopnea, palpitations or racing heartbeat Respiratory/Chest Respiratory/Chest: Denies cough, dyspnea or orthopnea Gastrointestinal Gastrointestinal: Denies abdominal pain, diarrhea, nausea or vomiting Genitourinary Genitourinary ED: Denies dysuria, hematuria or urinary frequency Musculoskeletal Musculoskeletal: Reports back pain; Denies arthralgias or myalgias Integumentary Denies abscess or rash Neurologic Neurologic: Denies headache(s) or weakness Psychiatric Psychiatric: Denies anxiety, depression, suicidal ideation or suicidal thoughts Endocrine Endocrinology: Denies polydipsia, polyphagia or polyuria Allergic/Immunologic Allergic/Immunologic ED: Denies mouth swelling, tongue swelling or urticaria EXAM Physical Exam Const Vital Signs: 08/31/21 09:52 Temperature 97.6 F L Temperature Source Temporal Pulse Rate 68 Respiratory Rate 17 Blood Pressure 157/84 H Blood Pressure Mean 108 Pulse Ox 99 Oxygen Delivery Method Room Air Positive well nourished and well developed General Appearance ED: well developed HEENT Reports normocephalic, head/scalp atraumatic and moist mucous membranes Eyes PERRL and EOMs intact bilaterally Neck no lymphadenopathy, supple and no JVD Resp normal respiratory effort and clear to auscultation bilaterally Cardio regular rate, regular rhythm and no murmurs GI normal to inspection, nondistended, normoactive bowel sounds and non-tender Palpation: soft Back/Spine no CVA tenderness and normal ROM Extremity normal to inspection General Extremety ED: Negative for edema General Extremity: Negative for edema Neuro oriented x3 and CN's II-XII intact bilaterally Sensorium / Orientation: alert Motor Exam: strength 5/5 throughout Psych mental status grossly normal Mood & Affect: Negative for depressed or tearful Skin no rashes or lesions noted and no wounds MDM MDM MDM Narrative Medical decision making narrative: Basic blood work was normal. Urinalysis normal CT of the abdomen pelvis does not demonstrate any ureterolithiasis or any pathology to explain his pain. He does not wish to have any pain medication at home. He is comfortable being discharged and following up with his doctor Lab Data Attestation: I reviewed the patient's lab results. Labs: Laboratory Results - last 24 hr 08/31/21 08/31/21 08/31/21 10:17 10:17 10:30 WBC 4.9 RBC 5.05 Hgb 15.4 Hct 44.8 MCV 88.7 MCH 30.5 MCHC 34.4 RDW Std Deviation 41.5 RDW Coeff of Stephen 12.6 Plt Count 177 MPV 10.5 Immature Gran % (Auto) 0.400 Neut % (Auto) 65.2 Lymph % (Auto) 23.2 [place] % (Auto) 9.2 Eos % (Auto) 1.2 Baso % (Auto) 0.8 Absolute Neuts (auto) 3.2 Absolute Lymphs (auto) 1.13 Nucleated RBC % 0 Sodium Cancelled 140 Potassium Cancelled 3.8 Chloride Cancelled 108 H Carbon Dioxide Cancelled 30.0 Anion Gap Cancelled 2 L BUN Cancelled 20 H Creatinine Cancelled 0.98 Estim Creat Clear Calc Cancelled 60.58 Est GFR (MDRD) Af Amer Cancelled 96 Est GFR (MDRD) Non-Af Cancelled 80 BUN/Creatinine Ratio Cancelled 20.4 H Glucose Cancelled 91 Calcium Cancelled 9.2 Urine Color Urine Clarity Urine pH Ur Specific [place] Urine Protein Urine Glucose (UA) Urine Ketones Urine Occult Blood Urine Nitrite Urine Bilirubin Urine Urobilinogen Ur Leukocyte Esterase Urine RBC Urine WBC Ur Squamous Epith Cells Urine Bacteria Urine Mucus 08/31/21 11:05 WBC RBC Hgb Hct MCV MCH MCHC RDW Std Deviation RDW Coeff of Stephen Plt Count MPV Immature Gran % (Auto) Neut % (Auto) Lymph % (Auto) [place] % (Auto) Eos % (Auto) Baso % (Auto) Absolute Neuts (auto) Absolute Lymphs (auto) Nucleated RBC % Sodium Potassium Chloride Carbon Dioxide Anion Gap BUN Creatinine Estim Creat Clear Calc Est GFR (MDRD) Af Amer Est GFR (MDRD) Non-Af BUN/Creatinine Ratio Glucose Calcium Urine Color Yellow Urine Clarity Clear Urine pH 6.0 Ur Specific [place] 1.010 Urine Protein Negative Urine Glucose (UA) Normal Urine Ketones Negative Urine Occult Blood Negative Urine Nitrite Negative Urine Bilirubin Negative Urine Urobilinogen Normal Ur Leukocyte Esterase Negative Urine RBC 0 SEEN Urine WBC 0 SEEN Ur Squamous Epith Cells 0 SEEN Urine Bacteria 0 SEEN Urine Mucus 0 SEEN Radiography Diagnostic Testing: Clinical Impression(s) from Imaging Studies Abdomen/Pelvis CT 08/31/21 10:09 IMPRESSION: Mild degree of nonspecific bilateral perinephric stranding. No obstructive uropathy is seen at this time. Fatty infiltration of the liver. Stable small hepatic cysts. Heterogeneous enlargement of the prostate with indentation at the bladder base. Electronically Signed: Brian Porter MD at 10:49 EDT , Discharge Plan Triage Chief Complaint: Flank Pain ED Provider: Shailesh Ramirez Dx/Rx/DC Orders Clinical Impression: Acute flank pain Instructions: ED Flank Pain, Uncertain Cause Prescriptions: No Action multivitamin 1 EACH tablet 1 ea PO DAILY cholecalciferol (vitamin D3) 1,000 UNIT tablet 1,000 mg PO DAILY amlodipine 10 mg tablet 10 mg PO DAILY lisinopril 10 mg tablet 10 mg PO DAILY hydroxychloroquine 200 mg Tablet 400 mg PO DAILY [facility]: [facility]errals: [facility] [Primary Care Provider] - As Needed Disposition Disposition: Home, Self Care
[2021-08-31 10:23] LABS: Absolute Lymphocyte Count 1.13 X10^3/uL (0.83-4.51); Absolute Neutrophil Count 3.2 X10^3/uL (2.0-7.7); Basophil# 0.04 X10^3/uL; Basophil% 0.8 % (0-1); Eosinophil# 0.06 X10^3/uL; Eosinophils% 1.2 % (0-5); Hematocrit 44.8 % (40-54); Hemoglobin 15.4 g/dL (13.0-16.5); Lymphocyte # 1.13 X10^3/ul (0.83-4.51); Lymphocyte % 23.2 % (19-41); Mean Corp Hgb Conc 34.4 g/dL (32-36); Mean Corpuscular Hgb 30.5 pg (27.0-32.0); Mean Corpuscular Volume 88.7 fL (80-94); Mean Platelet Vol. 10.5 fl (6.2-12.0); Monocyte# 0.45 X10^3/uL; Monocyte% 9.2 % (0-10); NRBC Flagged by Analyzer 0 % (0-5); Neutrophil # 3.18 X10^3/uL (2.7-7.7); Neutrophil % 65.2 % (47-70); Platelet Count 177 K/mm3 (150-450); RBC Distribution Width CV 12.6 % (11.6-14.6); RBC Distribution Width SD 41.5 fl (35.1-43.9); Red Blood Count 5.05 M/mm3 (4.6-6.2); White Blood Count 4.9 K/mm3 (4.4-11.0)
[2021-08-31 10:53] LABS: Anion Gap 2 (5-15); BUN 20 mg/dL (7-18); BUN/Creat Ratio 20.4 RATIO (10-20); Calcium,Total 9.2 mg/dL (8.5-10.1); Chloride 108 mmol/L (98-107); Creatinine, Serum 0.98 mg/dL (0.70-1.30); EST Glomerular Filtration Rate 80 mL/min (>60); Est Glom Filt Rate - Afr Amer 96 mL/min (>60); Estimated Creatinine Clearance 60.58 ml/min; Glucose 91 mg/dL (74-106); Potassium 3.8 mmol/L (3.5-5.1); Sodium Level 140 mmol/L (136-145)
[2021-08-31 11:13] LABS: Bacteria 0 SEEN /hpf (None Seen); Mucous, Urine 0 SEEN /hpf (<or=2+); Red Blood Cells-Urine 0 SEEN /hpf (0-5); Squamous Epithelial Cells - UA 0 SEEN /hpf (0-5); White Blood Cells 0 SEEN /hpf (0-5)
[2021-08-31 11:17] LABS: Color, Urine Yellow (Yellow); Glucose, Dipstick Normal (Normal); Ketone-Dipstick Negative (Negative); Leukocyte Esterase-Dipstick Negative /ul (Negative); Nitrite-Dipstick Negative (Negative); Occult Blood-Urine Negative /ul (Negative); Protein-Dipstick Negative (Negative); Urine Bilirubin Dipstick Negative (Negative); Urine Clarity Clear (Clear); Urine Urobilinogen Normal (Normal)
[2021-08-31 12:00] VITALS: PULSE 74; RESP 17; O2SAT 99
== END 2021-08-31 12:01 | disposition home or self-care (01) ==
PROVIDERS: Emergency Provider Emergency Medicine; Visit Provider Emergency Medicine
DX: R10.9 Unspecified abdominal pain (principal); I10 Essential (primary) hypertension; Z87.442 Personal history of urinary calculi
CPT/HCPCS: 74176; 80048; 81001; 85025; 99283; A4216

== ENCOUNTER → 2023-04-17 | Outpatient (CLI) | payer OTHER, SELFPAY ==
[2023-04-17 12:43] LABS: Absolute Lymphocyte Count 1.59 X10^3/uL (0.83-4.51); Absolute Neutrophil Count 3.1 X10^3/uL (2.0-7.7); Basophil# 0.07 X10^3/uL; Basophil% 1.3 % (0-1); Eosinophil# 0.13 X10^3/uL; Eosinophils% 2.3 % (0-5); Hematocrit 44.9 % (40-54); Hemoglobin 14.7 g/dL (13.0-16.5); Lymphocyte # 1.59 X10^3/ul (0.83-4.51); Lymphocyte % 28.5 % (19-41); Mean Corp Hgb Conc 32.7 g/dL (32-36); Mean Corpuscular Hgb 29.4 pg (27.0-32.0); Mean Corpuscular Volume 89.8 fL (80-94); Mean Platelet Vol. 9.9 fl (6.2-12.0); Monocyte# 0.62 X10^3/uL; Monocyte% 11.1 % (0-10); NRBC Flagged by Analyzer 0 % (0-5); Neutrophil # 3.14 X10^3/uL (2.7-7.7); Neutrophil % 56.4 % (47-70); Platelet Count 170 K/mm3 (150-450); RBC Distribution Width CV 12.7 % (11.6-14.6); White Blood Count 5.6 K/mm3 (4.4-11.0)
[2023-04-17 13:12] LABS: Anion Gap 3 (5-15); BUN 18 mg/dL (7-18); BUN/Creat Ratio 15.9 RATIO (10-20); Calcium,Total 9.3 mg/dL (8.5-10.1); Chloride 109 mmol/L (98-107); Creatinine, Serum 1.13 mg/dL (0.70-1.30); EST Glomerular Filtration Rate 67 mL/min (>60); Est Glom Filt Rate - Afr Amer 81 mL/min (>60); Glucose 91 mg/dL (74-106); Potassium 4.3 mmol/L (3.5-5.1); Sodium Level 139 mmol/L (136-145)
== END | disposition home or self-care (01) ==
PROVIDERS: Referring Provider Physician Assistant; Visit Provider Physician Assistant
DX: Z01.818 Encounter for other preprocedural examination (principal); Z01.810 Encounter for preprocedural cardiovascular examination
CPT/HCPCS: 36415; 80048; 85025; 93005